=== PATIENT | male | born 1970 | race African-American/Black ===

== ENCOUNTER 2020-03-08 10:48 | Inpatient (IN) | payer MEDICAID ==
[~2020-03-08] VITALS: Ht 172.7 cm; Wt 86.2 kg
[2020-03-08] MEDS ORDERED: AMLO5TAB88 PO (10:52)
[2020-03-08] MEDS ORDERED: SODIUM CHLORIDE 0.9% 1,000 ML IV ONE ×2 (11:05→15:15)
[2020-03-08] MEDS ORDERED: MAGNESIUM/ALUMINUM HYDROXIDE/SIMETHICONE 30ML UDC PO STA (11:05)
[2020-03-08 12:00] LABS: EOSINOPHILS % 1.9 % (0.0-5.0); HEMATOCRIT. 41.8 % (42.0-52.0); HEMOGLOBIN. 13.9 g/dL (14.0-18.0); LYMPHOCYTES % 20.2 % (20.0-50.0); MEAN CORPUSCULAR HEMOGLOBIN 28.5 pg (28.0-32.0); MEAN CORPUSCULAR VOLUME 85.4 fL (80.0-94.0); MEAN PLATELET VOLUME 7.8 fl (7.4-10.4); NEUTROPHILS % 68.9 % (40.0-76.0); PLATELET 367 x1000/uL (130-400); RED BLOOD CELL COUNT 4.89 mill/uL (4.7-6.1); RED CELL DISTRIBUTION WIDTH 15.2 % (11.6-14.6)
[2020-03-08 12:01] LABS: CLARITY URINE CLEAR (CLEAR); COLOR URINE YELLOW (YELLOW); KETONES URINE NEGATIVE (NEGATIVE); LEUKOCYTE ESTERASE URINE NEGATIVE (NEGATIVE); NITRITE URINE NEGATIVE (NEGATIVE); OCCULT BLOOD URINE TRACE (NEGATIVE); PH URINE 5.5 (4.5-8.0); PROTEIN URINE TRACE (NEGATIVE); SPECIFIC GRAVITY URINE 1.009 (1.005-1.030); UROBILINOGEN URINE 0.2 E.U./dL (0.2-1.0)
[2020-03-08 12:06] LABS: CHLORIDE 92 mEq/L (98-107)
[2020-03-08 12:18] LABS: ETHANOL BLOOD 233 mg/dL
[2020-03-08 12:25] LABS: *AMPHETAMINES SCREEN URINE NEGATIVE (NEGATIVE); *BARBITURATES SCREEN URINE NEGATIVE (NEGATIVE); *BENZODIAZEPINES SCREEN URINE NEGATIVE (NEGATIVE); *COCAINE SCREEN URINE NEGATIVE (NEGATIVE); CANNABINOID URINE SCREEN PRESUMTIVE POSITIVE (NEGATIVE); METHADONE URINE SCREEN NEGATIVE (NEGATIVE)
[2020-03-08 12:26] LABS: OPIATES URINE SCREEN NEGATIVE (NEGATIVE); PHENCYCLIDINE URINE SCREEN NEGATIVE (NEGATIVE)
[2020-03-08] MEDS ORDERED: MORPHINE SULFATE 4 MG/ML CPJ (NOT FOR IM USE) IV NR (15:00)
[2020-03-08] MEDS ORDERED: LORAZEPAM 2MG/ML CPJ IV NR (15:15)
[2020-03-08] MEDS ORDERED: ONDANSETRON HCL 4MG/2ML INJ IV NR (16:30)
[2020-03-08] MEDS ORDERED: DIPHENHYDRAMINE 50MG/ML VIAL IV PRN (16:30)
[2020-03-08] MEDS ORDERED: FOLIC ACID 1 MG, THIAMINE HCL 100 MG, MVI, ADULT NO.1 10 ML in DEXTROSE 5% WATER 1,000 ML IV ONE ×4 (16:45)
[2020-03-08] MEDS: SODIUM CHLORIDE 0.9% 1,000 ML IV SCH (20:23)
[2020-03-08] MEDS: ONDANSETRON HCL 4MG/2ML INJ IV PRN (21:28)
[2020-03-08] MEDS: CLONIDINE 0.1MG TABLET PO PRN (21:28)
[2020-03-09 05:16] LABS: BASOPHILS % 0.7 % (0.0-2.0); EOSINOPHILS % 3.6 % (0.0-5.0); HEMATOCRIT. 37.9 % (42.0-52.0); HEMOGLOBIN. 12.5 g/dL (14.0-18.0); LYMPHOCYTES % 14.4 % (20.0-50.0); MEAN CORPUSCULAR HEMOGLOBIN 28.6 pg (28.0-32.0); MEAN CORPUSCULAR VOLUME 86.4 fL (80.0-94.0); MEAN PLATELET VOLUME 8.4 fl (7.4-10.4); MONOCYTES % 13.9 % (2.0-8.0); NEUTROPHILS % 67.4 % (40.0-76.0); PLATELET 323 x1000/uL (130-400); RED BLOOD CELL COUNT 4.39 mill/uL (4.7-6.1); RED CELL DISTRIBUTION WIDTH 15.3 % (11.6-14.6)
[2020-03-09 05:24] LABS: CHLORIDE 101 mEq/L (98-107)
[2020-03-09 05:31] LABS: LDL CHOLESTEROL 54 mg/dL (5-100)
[2020-03-09 05:33] LABS: HDL CHOLESTEROL 102 mg/dL (40-59)
[2020-03-09] MEDS: MORPHINE SULFATE 2 MG/ML CPJ (NOT FOR IM USE) IV PRN ×3 (08:18→19:51)
[2020-03-09] MEDS: ONDANSETRON HCL 4MG/2ML INJ IV PRN ×2 (08:19→13:38)
[2020-03-09] MEDS ORDERED: FOLIC ACID 1 MG, THIAMINE HCL 100 MG, MVI, ADULT NO.1 10 ML in DEXTROSE 5% WATER 1,000 ML IV ONE ×4 (09:45)
[2020-03-09] MEDS ORDERED: DIAZEPAM 5 MG TABLET PO PRN (09:45)
[2020-03-09] MEDS: BUPROPION HCL 150MG TABLET XL 24HR PO SCH (11:55)
[2020-03-09] MEDS ORDERED: BUSPIRONE HCL 5MG TABLET PO SCH (14:00)
[2020-03-09] MEDS: CLONIDINE 0.1MG TABLET PO PRN (16:04)
[2020-03-09] MEDS ORDERED: DIATR MEGLU/DIATRIZOATE SOLN 30ML PO SCH (16:30)
[2020-03-09] MEDS ORDERED: DIATR MEGLU/DIATRIZOATE SOLN 30ML ONE (16:56)
[2020-03-09] MEDS ORDERED: TRAZODONE HCL 50MG TABLET PO SCH (21:00)
[2020-03-09] MEDS ORDERED: IOHEXOL-300 100 ML BOTTLE ONE (23:21)
[2020-03-10] MEDS: MORPHINE SULFATE 2 MG/ML CPJ (NOT FOR IM USE) IV PRN ×2 (04:48→19:09)
[2020-03-10] MEDS ORDERED: hydrochlorothiazide PO (13:52)
[2020-03-10] MEDS ORDERED: wellbutrin PO (13:54)
[2020-03-10] MEDS ORDERED: prilosec PO (13:56)
[2020-03-10] MEDS ORDERED: prozac PO (14:00)
[2020-03-10 14:02] VITALS: BP 163/116
[2020-03-10] MEDS: BUPROPION HCL 150MG TABLET XL 24HR PO SCH (14:11)
[2020-03-10] MEDS: AMLODIPINE 5MG TABLET PO SCH (14:11)
[2020-03-10] MEDS: BUSPIRONE HCL 10MG TABLET PO SCH ×2 (14:11→21:19)
[2020-03-10] MEDS ORDERED: DIAZEPAM 5 MG TABLET PO PRN (15:15)
[2020-03-10 15:30] VITALS: BP 163/116
[2020-03-10 16:00] VITALS: BP 147/116
[2020-03-10 20:00] VITALS: BP 167/118
[2020-03-10] MEDS: TRAZODONE HCL 50MG TABLET PO SCH (21:19)
[2020-03-11] VITALS: BP 155/106
[2020-03-11] MEDS: CLONIDINE 0.1MG TABLET PO PRN ×4 (00:05→22:30)
[2020-03-11] MEDS: MORPHINE SULFATE 2 MG/ML CPJ (NOT FOR IM USE) IV PRN ×3 (00:24→20:12)
[2020-03-11 04:00] VITALS: BP 142/104
[2020-03-11 06:41] LABS: CHLORIDE 101 mEq/L (98-107)
[2020-03-11 06:46] LABS: BASOPHILS % 0.7 % (0.0-2.0); EOSINOPHILS % 4.9 % (0.0-5.0); HEMATOCRIT. 38.5 % (42.0-52.0); HEMOGLOBIN. 12.8 g/dL (14.0-18.0); LYMPHOCYTES % 15.6 % (20.0-50.0); MEAN CORPUSCULAR HEMOGLOBIN 28.5 pg (28.0-32.0); MEAN CORPUSCULAR VOLUME 85.9 fL (80.0-94.0); MEAN PLATELET VOLUME 8.3 fl (7.4-10.4); MONOCYTES % 11.3 % (2.0-8.0); NEUTROPHILS % 67.5 % (40.0-76.0); PLATELET 284 x1000/uL (130-400); RED BLOOD CELL COUNT 4.48 mill/uL (4.7-6.1); RED CELL DISTRIBUTION WIDTH 15.3 % (11.6-14.6)
[2020-03-11] MEDS: BUSPIRONE HCL 10MG TABLET PO SCH ×3 (07:51→21:57)
[2020-03-11 08:26] VITALS: BP 150/97
[2020-03-11] MEDS: BUPROPION HCL 150MG TABLET XL 24HR PO SCH (08:29)
[2020-03-11] MEDS: AMLODIPINE 5MG TABLET PO SCH (08:29)
[2020-03-11] MEDS: ONDANSETRON HCL 4MG/2ML INJ IV PRN (08:29)
[2020-03-11] MEDS: PANTOPRAZOLE SODIUM 40 MG/VIAL IV SCH ×2 (09:39→16:14)
[2020-03-11 11:40] VITALS: BP 149/111
[2020-03-11] MEDS: SODIUM CHLORIDE 0.9% 1,000 ML IV SCH ×2 (12:56→19:30)
[2020-03-11 16:22] VITALS: BP 164/109
[2020-03-11 20:00] VITALS: BP 151/105
[2020-03-11] MEDS: TRAZODONE HCL 50MG TABLET PO SCH (21:56)
[2020-03-12] VITALS: BP 166/109
[2020-03-12] MEDS: MORPHINE SULFATE 2 MG/ML CPJ (NOT FOR IM USE) IV PRN ×3 (03:46→22:00)
[2020-03-12 04:00] VITALS: BP 155/110
[2020-03-12] MEDS: CLONIDINE 0.1MG TABLET PO PRN ×2 (04:30→12:26)
[2020-03-12] MEDS: BUSPIRONE HCL 10MG TABLET PO SCH ×3 (06:27→21:59)
[2020-03-12 06:37] LABS: CHLORIDE 103 mEq/L (98-107)
[2020-03-12 06:57] LABS: BASOPHILS % 0.6 % (0.0-2.0); EOSINOPHILS % 4.9 % (0.0-5.0); HEMATOCRIT. 37.2 % (42.0-52.0); HEMOGLOBIN. 12.1 g/dL (14.0-18.0); LYMPHOCYTES % 15.6 % (20.0-50.0); MEAN CORPUSCULAR HEMOGLOBIN 28.4 pg (28.0-32.0); MEAN PLATELET VOLUME 8.3 fl (7.4-10.4); MONOCYTES % 14.4 % (2.0-8.0); NEUTROPHILS % 64.5 % (40.0-76.0); PLATELET 275 x1000/uL (130-400); RED BLOOD CELL COUNT 4.28 mill/uL (4.7-6.1); RED CELL DISTRIBUTION WIDTH 15.2 % (11.6-14.6)
[2020-03-12 07:42] VITALS: BP 151/107
[2020-03-12] MEDS: SODIUM CHLORIDE 0.9% 1,000 ML IV SCH ×2 (08:09→21:59)
[2020-03-12] MEDS: PANTOPRAZOLE SODIUM 40 MG/VIAL IV SCH ×2 (08:09→21:59)
[2020-03-12] MEDS: AMLODIPINE 5MG TABLET PO SCH (08:10)
[2020-03-12] MEDS: BUPROPION HCL 150MG TABLET XL 24HR PO SCH (08:10)
[2020-03-12 12:24] VITALS: BP 148/107
[2020-03-12 16:00] VITALS: BP 151/107
[2020-03-12] MEDS ORDERED: CLONIDINE 0.1MG TABLET PO NR (17:00)
[2020-03-12 20:27] VITALS: BP 149/108
[2020-03-12] MEDS ORDERED: AMLODIPINE 5MG TABLET PO SCH (21:00)
[2020-03-12] MEDS: TRAZODONE HCL 50MG TABLET PO SCH (22:00)
[2020-03-13] VITALS (7 sets, daily range): BP systolic 146–172; BP diastolic 86–115
[2020-03-13] MEDS: CLONIDINE 0.1MG TABLET PO PRN ×2 (05:27→12:12)
[2020-03-13] MEDS: MORPHINE SULFATE 2 MG/ML CPJ (NOT FOR IM USE) IV PRN ×2 (05:28→13:40)
[2020-03-13] MEDS: BUSPIRONE HCL 10MG TABLET PO SCH ×3 (05:28→20:01)
[2020-03-13 07:18] LABS: HEMATOCRIT. 39.7 % (42.0-52.0); HEMOGLOBIN. 12.9 g/dL (14.0-18.0); MEAN CORPUSCULAR HEMOGLOBIN 28.3 pg (28.0-32.0); MEAN CORPUSCULAR VOLUME 86.9 fL (80.0-94.0); MEAN PLATELET VOLUME 8.5 fl (7.4-10.4); PLATELET 298 x1000/uL (130-400); RED BLOOD CELL COUNT 4.57 mill/uL (4.7-6.1); RED CELL DISTRIBUTION WIDTH 15.3 % (11.6-14.6)
[2020-03-13 07:33] LABS: CHLORIDE 105 mEq/L (98-107)
[2020-03-13] MEDS ORDERED: LOSARTAN POTASSIUM 25 MG TABLET PO SCH (09:00)
[2020-03-13] MEDS ORDERED: AMLODIPINE 10MG TABLET PO SCH (09:00)
[2020-03-13] MEDS: PANTOPRAZOLE SODIUM 40 MG/VIAL IV SCH (09:19)
[2020-03-13] MEDS: BUPROPION HCL 150MG TABLET XL 24HR PO SCH (09:20)
[2020-03-13] MEDS: SODIUM CHLORIDE 0.9% 1,000 ML IV SCH (09:24)
[2020-03-13 11:15] LABS: PLATELET ESTIMATE NORMAL
[2020-03-13] MEDS: ONDANSETRON HCL 4MG/2ML INJ IV PRN (13:39)
[2020-03-13] MEDS ORDERED: BUSP10TA4 PO (14:45)
[2020-03-13] MEDS ORDERED: BUPR150T9 PO (14:45)
[2020-03-13] MEDS ORDERED: PANT40TA4 MT (14:45)
[2020-03-13] MEDS ORDERED: TRAZ-251 PO (14:45)
[2020-03-13] MEDS ORDERED: METO-385 MT (14:45)
[2020-03-13] MEDS ORDERED: AMLO10TA80 PO (14:45)
[2020-03-13] MEDS ORDERED: LOSA25TA3 PO (14:45)
[2020-03-13] MEDS: METOPROLOL TARTRATE 25MG TABLET PO SCH ×3 (15:00→20:02)
[2020-03-13] MEDS: TRAZODONE HCL 50MG TABLET PO SCH (20:01)
[2020-03-13] MEDS ORDERED: FAMOTIDINE 20MG/2ML VIAL IV SCH (21:00)
== END 2020-03-13 20:56 | disposition home or self-care (01) | DRG 282 ==
LOC: ER 10:57 → MICUSO 15:09 → 5EST 03-09 10:19 → MICUSO 03-09 10:45 → 5WST 03-10 10:34
PROVIDERS: ADMIT Internal Medicine; ATTEND Internal Medicine
DX: K85.20 Alcohol induced acute pancreatitis without necrosis or infection (principal); F20.9 Schizophrenia, unspecified; F31.9 Bipolar disorder, unspecified; K70.0 Alcoholic fatty liver; R45.851 Suicidal ideations; Y90.7 Blood alcohol level of 200-239 mg/100 ml; F10.129 Alcohol abuse with intoxication, unspecified; E87.1 Hypo-osmolality and hyponatremia; D64.9 Anemia, unspecified; E86.0 Dehydration; E87.8 Other disorders of electrolyte and fluid balance, not elsewhere classified; I10 Essential (primary) hypertension; K29.70 Gastritis, unspecified, without bleeding; K57.90 Diverticulosis of intestine, part unspecified, without perforation or abscess without bleeding; Z20.828 Contact with and (suspected) exposure to other viral communicable diseases; E66.9 Obesity, unspecified; F41.9 Anxiety disorder, unspecified; Z90.49 Acquired absence of other specified parts of digestive tract; Z98.84 Bariatric surgery status; Z79.899 Other long term (current) drug therapy; Z68.28 Body mass index [BMI] 28.0-28.9, adult; R74.0 Nonspecific elevation of levels of transaminase and lactic acid dehydrogenase [LDH]; R19.7 Diarrhea, unspecified
CPT/HCPCS: 36415; 71045; 74177; 76705; 80048; 80053; 80061; 80076; 80305; 80307; 80320; 80329; 81003; 82105; 82378; 84443; 85025; 86301; 87635; 93005; 96374; 99285; C9113; J1200; J2060; J2270; J2405; J3411; J3490; J7030; J7070; Q9963; Q9967; G0480

== ENCOUNTER 2020-12-21 16:17 | Emergency (ER) | payer OTHER ==
[~2020-12-21] VITALS: Ht 182.9 cm; Wt 100.0 kg
[~2020-12-21 16:17] MED LIST: AMLO10TA80 PO; BUPR150T9 PO; BUSP10TA4 PO; LOSA25TA3 PO; METO-385 MT; PANT40TA51 MT; TRAZ-251 PO
[2020-12-21] MEDS ORDERED: FAMOTIDINE 20MG/2ML VIAL IV STA (16:30)
[2020-12-21] MEDS ORDERED: SODIUM CHLORIDE 0.9% 1,000 ML IV ONE (16:30)
[2020-12-21] MEDS ORDERED: MORPHINE SULFATE 4 MG/ML CPJ (NOT FOR IM USE) IV STA (16:30)
[2020-12-21] MEDS ORDERED: ONDANSETRON HCL 4MG/2ML INJ IV STA (16:30)
[2020-12-21 17:21] LABS: BASOPHILS % 0.8 % (0.0-2.0); EOSINOPHILS % 10.2 % (0.0-5.0); HEMOGLOBIN. 12.1 g/dL (14.0-18.0); MEAN CORPUSCULAR HEMOGLOBIN 29.1 pg (28.0-32.0); MEAN CORPUSCULAR VOLUME 86.7 fL (80.0-94.0); MEAN PLATELET VOLUME 7.8 fl (7.4-10.4); MONOCYTES % 12.3 % (2.0-8.0); NEUTROPHILS % 49.7 % (40.0-76.0); PLATELET 321 x1000/uL (130-400); RED BLOOD CELL COUNT 4.15 mill/uL (4.7-6.1); RED CELL DISTRIBUTION WIDTH 14.4 % (11.6-14.6)
[2020-12-21 17:23] LABS: CLARITY URINE CLEAR (CLEAR); COLOR URINE YELLOW (YELLOW); KETONES URINE NEGATIVE (NEGATIVE); LEUKOCYTE ESTERASE URINE NEGATIVE (NEGATIVE); NITRITE URINE NEGATIVE (NEGATIVE); OCCULT BLOOD URINE NEGATIVE (NEGATIVE); PH URINE 5.5 (4.5-8.0); PROTEIN URINE NEGATIVE (NEGATIVE); SPECIFIC GRAVITY URINE 1.006 (1.005-1.030); UROBILINOGEN URINE 0.2 E.U./dL (0.2-1.0)
[2020-12-21 17:24] LABS: CHLORIDE 106 mEq/L (98-107)
[2020-12-21 17:30] LABS: ETHANOL BLOOD 14 mg/dL
[2020-12-21] MEDS ORDERED: KETOROLAC 30MG/ML VIAL IV STA (17:54)
[2020-12-21] MEDS ORDERED: VISCOUS LIDOCAINE 2% 15 ML UDC PO STA (17:54)
[2020-12-21] MEDS ORDERED: MAGNESIUM/ALUMINUM HYDROXIDE/SIMETHICONE 30ML UDC PO STA (17:54)
[2020-12-21] MEDS ORDERED: ONDANSETRON HCL 4MG/2ML INJ IV ONE (19:00)
[2020-12-21] MEDS ORDERED: MORPHINE SULFATE 4 MG/ML CPJ (NOT FOR IM USE) IV ONE (19:30)
[2020-12-21] MEDS ORDERED: ONDA4TAB5 MT (19:45)
[2020-12-21] MEDS ORDERED: FAMO40TA70 MT (19:45)
[2020-12-21 20:04] VITALS: BP 149/88
== END 2020-12-21 20:15 | disposition home or self-care (01) ==
LOC: ER 16:17
DX: K29.00 Acute gastritis without bleeding (principal); N28.9 Disorder of kidney and ureter, unspecified; I10 Essential (primary) hypertension; F31.9 Bipolar disorder, unspecified; F20.9 Schizophrenia, unspecified; F12.10 Cannabis abuse, uncomplicated; F10.10 Alcohol abuse, uncomplicated; Y90.0 Blood alcohol level of less than 20 mg/100 ml; Z98.84 Bariatric surgery status
CPT/HCPCS: 36415; 80053; 80320; 81003; 83690; 85025; 96361; 96374; 96375; 96376; 99285; J1885; J2270; J2405; J3490; J7030; Z7610; G0480

== ENCOUNTER 2021-01-12 14:56 | Emergency (ER) | payer MEDICAID, OTHER ==
[~2021-01-12] VITALS: Ht 175.3 cm; Wt 91.0 kg
[~2021-01-12 14:56] MED LIST changes: +FAMO40TA70 MT; +ONDA4TAB5 MT
[2021-01-12] MEDS ORDERED: KETOROLAC 30MG/ML VIAL IM ONE (16:30)
[2021-01-12] MEDS ORDERED: NAPR-1176 MT (16:38)
[2021-01-12 16:49] VITALS: BP 140/98
== END 2021-01-12 17:15 | disposition home or self-care (01) ==
LOC: ER 14:56
DX: M25.562 Pain in left knee (principal); M25.561 Pain in right knee; F12.10 Cannabis abuse, uncomplicated; I10 Essential (primary) hypertension; Z79.899 Other long term (current) drug therapy; Z86.59 Personal history of other mental and behavioral disorders
CPT/HCPCS: 96372; 99283; J1885; L1830; Z7610

== ENCOUNTER 2021-05-18 15:52 | Emergency (ER) | payer MEDICAID, OTHER ==
[~2021-05-18] VITALS: Ht 177.8 cm; Wt 115.0 kg
[~2021-05-18 15:52] MED LIST changes: +NAPR-1176 MT
[2021-05-18] MEDS ORDERED: ACETAMINOPHEN 325MG TABLET PO STA (18:00)
[2021-05-18 18:19] LABS: BASOPHILS % 0.9 % (0.0-2.0); EOSINOPHILS % 8.3 % (0.0-5.0); HEMATOCRIT. 34.3 % (42.0-52.0); HEMOGLOBIN. 11.2 g/dL (14.0-18.0); LYMPHOCYTES % 23.6 % (20.0-50.0); MEAN CORPUSCULAR HEMOGLOBIN 26.9 pg (28.0-32.0); MEAN CORPUSCULAR VOLUME 82.4 fL (80.0-94.0); MONOCYTES % 12.6 % (2.0-8.0); NEUTROPHILS % 54.6 % (40.0-76.0); PLATELET 327 x1000/uL (130-400); RED BLOOD CELL COUNT 4.17 mill/uL (4.7-6.1); RED CELL DISTRIBUTION WIDTH 15.9 % (11.6-14.6)
[2021-05-18 18:26] LABS: CHLORIDE 106 mEq/L (98-107)
[2021-05-18] MEDS ORDERED: SODIUM CHLORIDE 0.9% 500 ML IV ONE (19:00)
[2021-05-18 21:00] VITALS: BP 145/76
== END 2021-05-18 21:11 | disposition home or self-care (01) ==
LOC: ER 15:52
DX: R55 Syncope and collapse (principal); F12.10 Cannabis abuse, uncomplicated; I10 Essential (primary) hypertension; Z86.59 Personal history of other mental and behavioral disorders; Z79.899 Other long term (current) drug therapy
CPT/HCPCS: 36415; 70450; 71045; 80053; 83880; 84484; 85025; 93005; 96360; 99285; J7040; Z7610

== ENCOUNTER 2023-08-01 08:40 | Emergency (ER) | payer MEDICAID ==
[~2023-08-01] VITALS: Ht 172.7 cm; Wt 91.0 kg
[~2023-08-01 08:40] MED LIST changes: +BUPR-114 PO; -BUPR150T9 PO; +LOSA-412 PO; -LOSA25TA3 PO
[2023-08-01 08:57] VITALS: BP 124/87; PULSE 94; RESP 16; TEMP 98.6; O2SAT 98
[2023-08-01] MEDS ORDERED: HYDR-4001 MT (09:30)
[2023-08-01] MEDS: SILVER SULFADIAZINE 1% CREAM 25GM TOP ONE (09:30)
[2023-08-01] MEDS: TETANUS AND DIPHTHERIA TOX/PF 0.5ML SYR (ADULT) IM ONE (09:30)
[2023-08-01] MEDS ORDERED: IBUP-2028 MT (09:30)
[2023-08-01] MEDS ORDERED: SILV20CR13 TP (09:30)
[2023-08-04] MEDS ORDERED: HYDR-4001 MT (10:17)
== END 2023-08-01 11:18 | disposition home or self-care (01) ==
LOC: ER 08:52
DX: T23.201A Burn of second degree of right hand, unspecified site, initial encounter (principal); T79.9XXA Unspecified early complication of trauma, initial encounter; I10 Essential (primary) hypertension; F12.10 Cannabis abuse, uncomplicated; Z79.899 Other long term (current) drug therapy; Z86.59 Personal history of other mental and behavioral disorders; X10.0XXA Contact with hot drinks, initial encounter; Y93.89 Activity, other specified; Y92.89 Other specified places as the place of occurrence of the external cause; Y99.8 Other external cause status
CPT/HCPCS: 90714; 16000; 90471; 99283; Z7610

== ENCOUNTER 2024-02-23 22:05 | Emergency (ER) | payer MEDICARE, OTHER ==
[~2024-02-23] VITALS: Ht 180.3 cm; Wt 83.0 kg
[~2024-02-23 22:05] MED LIST changes: +HYDR-4001 MT; +IBUP-2028 MT; +SILV20CR13 TP
[2024-02-23 22:07] VITALS: O2SAT 100
[2024-02-23] MEDS: SODIUM CHLORIDE 0.9% 1000ML BAG (SEPSIS BOLUS) IV ONE (23:00)
[2024-02-23 23:15] LABS: BASOPHILS % 0.4 % (0.0-2.0); EOSINOPHILS % 3.9 % (0.0-5.0); HEMATOCRIT. 33.3 % (42.0-52.0); LYMPHOCYTES % 17.4 % (20.0-50.0); MEAN CORPUSCULAR HEMOGLOBIN 30.3 pg (28.0-32.0); MEAN CORPUSCULAR VOLUME 91.7 fL (80.0-94.0); MEAN PLATELET VOLUME 7.4 fl (7.4-10.4); MONOCYTES % 14.2 % (2.0-8.0); NEUTROPHILS % 64.1 % (40.0-76.0); PLATELET 244 x1000/uL (130-400); RED BLOOD CELL COUNT 3.63 mill/uL (4.7-6.1); RED CELL DISTRIBUTION WIDTH 15.7 % (11.6-14.6); WHITE BLOOD COUNT 7.3 x1000/uL (4.5-11.0)
[2024-02-23 23:17] LABS: CHLORIDE 108 mEq/L (98-107); POTASSIUM 3.3 mEq/L (3.5-5.1); SODIUM 137 mEq/L (136-145)
[2024-02-23 23:18] LABS: CALCIUM 8.1 mg/dL (8.7-10.4); CARBON DIOXIDE 23 mEq/L (21-32)
[2024-02-23 23:23] LABS: CREATININE 1.7 mg/dL (0.6-1.3); GLUCOSE 69 mg/dL (70-105); UREA NITROGEN BLOOD 17 mg/dL (9-23)
[2024-02-23 23:24] LABS: TROPONIN I HIGH SENSITIVITY 8 ng/L (3.0-53)
[2024-02-23 23:25] LABS: ALANINE AMINOTRANSFERASE 22 IU/L (10-49); ALBUMIN 3.7 g/dL (3.2-4.8); ASPARTATE AMINOTRANSFERASE 30 IU/L (<34); LACTIC ACID 3.2 mmol/L (0.4-2.0)
[2024-02-23 23:26] LABS: BILIRUBIN TOTAL < 0.2 mg/dL (0.1-1.0); PROTEIN TOTAL 5.9 g/dL (6.0-8.3)
[2024-02-23 23:36] LABS: D-DIMER 2.14 mg/L FEU (<0.50); INR 0.9; PARTIAL THROMBOPLASTIN TIME 22.7 sec (23.4-31.0); PROTHROMBIN TIME 10.5 sec (9.6-11.0)
[2024-02-24] MEDS: CEFTRIAXONE 1GM/50ML 50 ML IV ONE (00:23)
[2024-02-24] MEDS: POTASSIUM CHLORIDE 20MEQ/PACKET PO ONE (00:23)
[2024-02-24] MEDS: AZITHROMYCIN 500MG/250ML 250 ML IV STA (00:44)
[2024-02-24 01:16] LABS: CLARITY URINE CLEAR (CLEAR); COLOR URINE YELLOW (YELLOW); GLUCOSE URINE NEGATIVE (NEGATIVE); KETONES URINE TRACE (NEGATIVE); LEUKOCYTE ESTERASE URINE NEGATIVE (NEGATIVE); NITRITE URINE NEGATIVE (NEGATIVE); OCCULT BLOOD URINE NEGATIVE (NEGATIVE); PH URINE 5.5 (4.5-8.0); PROTEIN URINE NEGATIVE (NEGATIVE); SPECIFIC GRAVITY URINE 1.015 (1.005-1.030); UROBILINOGEN URINE 0.2 E.U./dL (0.2-1.0)
[2024-02-24] MEDS: ASPIRIN 325MG EC TABLET PO ONE (02:37)
[2024-02-24] MEDS ORDERED: DOCUSATE SODIUM 100MG CAPSULE PO PRN (04:00)
[2024-02-24] MEDS ORDERED: CLONIDINE 0.1MG TABLET PO PRN (04:00)
[2024-02-24] MEDS ORDERED: IPRATROPIUM/ALBUTEROL 0.5-3(2.5)MG/3ML NEB HHN PRN (04:00)
[2024-02-24] MEDS ORDERED: MAGNESIUM/ALUMINUM HYDROXIDE/SIMETHICONE 30ML UDC PO PRN (04:00)
[2024-02-24] MEDS ORDERED: ACETAMINOPHEN 325MG TABLET PO PRN ×2 (04:00)
[2024-02-24] MEDS ORDERED: GUAIFENESIN 200MG/10ML SUGAR FREE UDC PO PRN (04:00)
[2024-02-24] MEDS ORDERED: ONDANSETRON HCL 4MG/2ML INJ IV PRN (04:00)
[2024-02-24] MEDS: IOHEXOL-350 100 ML BOTTLE ONE (04:11)
[2024-02-24 04:37] LABS: AMYLASE 93 IU/L (30-118)
[2024-02-24] MEDS: SODIUM CHLORIDE 0.9% 1,000 ML IV SCH (05:27)
[2024-02-24 09:05] LABS: *AMPHETAMINES SCREEN URINE NEGATIVE (NEGATIVE); *BARBITURATES SCREEN URINE NEGATIVE (NEGATIVE); *BENZODIAZEPINES SCREEN URINE NEGATIVE (NEGATIVE); *COCAINE SCREEN URINE NEGATIVE (NEGATIVE); CANNABINOID URINE SCREEN PRESUMPTIVE POSITIVE (NEGATIVE); ECSTASY MDMA SCREEN URINE NEGATIVE (NEGATIVE); METHADONE URINE SCREEN NEGATIVE (NEGATIVE); OPIATES URINE SCREEN NEGATIVE (NEGATIVE); PHENCYCLIDINE URINE SCREEN NEGATIVE (NEGATIVE)
[2024-02-24 12:59] VITALS: BP 122/84; PULSE 80; RESP 6; TEMP 98.6
[2024-02-24] MEDS ORDERED: IOHEXOL-350 100 ML BOTTLE ONE (16:22)
== END 2024-02-24 13:00 | disposition left against medical advice (07) ==
LOC: ER 22:05 → EDBEDREQ 02-24 02:27 → EDBEDREQTM 02-24 02:27 → ER 02-24 13:00 → CANBEDREQ 02-24 14:08
DX: A41.9 Sepsis, unspecified organism (principal); R65.20 Severe sepsis without septic shock; R07.9 Chest pain, unspecified; R10.9 Unspecified abdominal pain; F31.9 Bipolar disorder, unspecified; I10 Essential (primary) hypertension; F20.9 Schizophrenia, unspecified; F12.90 Cannabis use, unspecified, uncomplicated; Z98.890 Other specified postprocedural states; Z79.899 Other long term (current) drug therapy
CPT/HCPCS: 99285; 74176; 71045; 96361 ×2; 80053; 83880; 83605 ×2; 83690; 85025; 85379; 85610; 85730; 86850; 86900; 86901; 87040; 84484; 36415 ×2; 84145; 93005; 93970; 96365; 71275; 93923; 96366; 96375; 80305; 82150; 82962; 87086; 81003; J7030; Q9967; J0456; J0696

== ENCOUNTER 2024-09-08 20:57 | Emergency (ER) | payer MEDICAID, MEDICARE, OTHER ==
[~2024-09-08] VITALS: Ht 172.7 cm; Wt 100.0 kg
[2024-09-08 20:58] VITALS: O2SAT 100
[2024-09-08 21:05] VITALS: BP 149/90; PULSE 97; RESP 16; TEMP 36.9; O2SAT 99
[2024-09-08] MEDS ORDERED: TETANUS, DIPHTHERIA, PERTUSSIS VAC/PF 0.5ML (>10YR OLD) IM ONE (23:15)
[2024-09-08] MEDS ORDERED: LIDOCAINE HCL/PF 1% 10 MG/ML 5ML VIAL INFIL ONE (23:15)
[2024-09-08] MEDS ORDERED: BACITRACIN ZINC OINT UDPKT TOP ONE (23:15)
[2024-09-09] MEDS ORDERED: NAPR-1176 MT (02:22)
[2024-09-09] MEDS ORDERED: TETANUS, DIPHTHERIA, PERTUSSIS VAC/PF 0.5ML (>10YR OLD) IM ONE (02:30)
[2024-09-09] MEDS ORDERED: BACITRACIN ZINC OINT UDPKT TOP NR (02:30)
[2024-09-09] MEDS ORDERED: KETOROLAC 15MG/ML VIAL IM ONE (02:30)
[2024-09-09] MEDS ORDERED: LIDOCAINE HCL/PF 1% 10 MG/ML 5ML VIAL INFIL NR (02:30)
== END 2024-09-09 03:52 | disposition home or self-care (01) ==
LOC: ER 21:16
DX: S63.124A Dislocation of interphalangeal joint of right thumb, initial encounter (principal); S61.011A Laceration without foreign body of right thumb without damage to nail, initial encounter; F20.9 Schizophrenia, unspecified; F31.9 Bipolar disorder, unspecified; F41.9 Anxiety disorder, unspecified; I10 Essential (primary) hypertension; Z79.1 Long term (current) use of non-steroidal anti-inflammatories (NSAID); Z79.899 Other long term (current) drug therapy; Z98.84 Bariatric surgery status; W06.XXXA Fall from bed, initial encounter; Y93.89 Activity, other specified; Y92.89 Other specified places as the place of occurrence of the external cause; Y99.8 Other external cause status
CPT/HCPCS: 12002; 26770; 73130; 90715; 99284

== ENCOUNTER 2024-09-17 07:42 | Inpatient (IN) | payer MEDICARE, MEDICAID ==
[~2024-09-17] VITALS: Ht 172.7 cm; Wt 102.5 kg
[2024-09-17] MEDS: LIDOCAINE HCL 1% 20ML VIAL INFIL ONE (09:02)
[2024-09-17 09:50] LABS: BASOPHILS % 0.5 % (0.0-2.0); DIFFERENTIAL COMMENT 0; EOSINOPHILS % 6.4 % (0.0-5.0); HEMATOCRIT. 36.1 % (42.0-52.0); HEMOGLOBIN. 11.8 g/dL (14.0-18.0); LYMPHOCYTES % 14.9 % (20.0-50.0); MEAN CORPUSCULAR HEMOGLOBIN 27.1 pg (28.0-32.0); MEAN CORPUSCULAR HGB CONC 32.7 g/dL (31.0-37.0); MEAN PLATELET VOLUME 7.6 fl (7.4-10.4); MONOCYTES % 11.1 % (2.0-8.0); NEUTROPHILS % 67.1 % (40.0-76.0); PLATELET 439 x1000/uL (130-400); RED BLOOD CELL COUNT 4.35 mill/uL (4.7-6.1); RED CELL DISTRIBUTION WIDTH 17.7 % (11.6-14.6); WHITE BLOOD COUNT 8.7 x1000/uL (4.5-11.0)
[2024-09-17 09:51] LABS: CARBON DIOXIDE 27 mEq/L (21-32); CHLORIDE 98 mEq/L (98-107); POTASSIUM 5.8 mEq/L (3.5-5.1); SODIUM 132 mEq/L (136-145)
[2024-09-17 09:52] LABS: CALCIUM 8.5 mg/dL (8.7-10.4)
[2024-09-17] MEDS: KETOROLAC 15MG/ML VIAL IV ONE (09:53)
[2024-09-17] MEDS: VANCOMYCIN 1G PREMIX 200 ML IV SCH (09:54)
[2024-09-17] MEDS: MORPHINE SULFATE 4 MG/ML INJ (FOR IV/IM USE) IV ONE (09:54)
[2024-09-17 09:57] LABS: CREATININE 1.2 mg/dL (0.6-1.3); GLUCOSE 105 mg/dL (70-105); UREA NITROGEN BLOOD 7 mg/dL (9-23)
[2024-09-17] MEDS ORDERED: ONDANSETRON HCL 4MG/2ML INJ IV PRN (13:15)
[2024-09-17] MEDS ORDERED: TAMS-11 PO (13:15)
[2024-09-17] MEDS ORDERED: GABA-290 (13:15)
[2024-09-17] MEDS ORDERED: INSULIN REGULAR (HUMULIN R) 1000UNITS/10ML VIAL IV NR (13:30)
[2024-09-17] MEDS: ALBUTEROL (0.083%) 2.5MG/3ML NEB HHN NR (13:56)
[2024-09-17] MEDS ORDERED: CLINDAMYCIN 600MG PREMIX 50 ML IV SCH (14:00)
[2024-09-17 14:05] VITALS: PULSE 97; RESP 20
[2024-09-17] MEDS: CALCIUM CHLORIDE 1GM/10ML SYR IV NR (14:18)
[2024-09-17] MEDS: FUROSEMIDE 40MG/4ML VIAL IV NR (14:18)
[2024-09-17] MEDS: SODIUM BICARBONATE 8.4% 50MEQ/50ML SYR IV NR (14:18)
[2024-09-17] MEDS: DEXTROSE 50% WATER 50ML SYRINGE IV NR (14:18)
[2024-09-17] MEDS: SODIUM POLYSTYRENE SULFONATE 15 G/60 ML BOT PO NR (14:18)
[2024-09-17 15:50] VITALS: BP 162/93; PULSE 120; RESP 17; TEMP 36.1
[2024-09-17] MEDS: ACETAMINOPHEN 325MG TABLET PO PRN (15:58)
[2024-09-17 16:00] VITALS: BP 122/64; PULSE 77; RESP 18; TEMP 36.4; O2SAT 97
[2024-09-17] MEDS ORDERED: HYDRALAZINE 20MG/ML VIAL IV PRN (17:00)
[2024-09-17] MEDS ORDERED: NALOXONE HCL 0.4MG/ML VIAL IV PRN (17:00)
[2024-09-17] MEDS: MORPHINE SULFATE 2 MG/ML INJ (NOT FOR IM USE) IV PRN (17:10)
[2024-09-17] MEDS: PIPERACILLIN/TAZO 3.375G/50ML 50 ML IV SCH (17:45)
[2024-09-17] MEDS: CLINDAMYCIN 600MG PREMIX 50 ML IV SCH (18:59)
[2024-09-17 20:00] VITALS: BP 123/70; PULSE 83; RESP 18; TEMP 36.3; O2SAT 96
[2024-09-17] MEDS: ENOXAPARIN 30MG/0.3ML SYR SUBCUT SCH (21:55)
[2024-09-17] MEDS: HYDROCODONE/ACETAMINOPHEN 5/325MG TABLET PO PRN (22:08)
[2024-09-17] MEDS ORDERED: TADA10TA PO (23:20)
[2024-09-17] MEDS ORDERED: LOSA25TA26 PO (23:20)
[2024-09-17] MEDS ORDERED: CYCL10TA21 PO (23:20)
[2024-09-17] MEDS ORDERED: LURA120T2 (23:20)
[2024-09-17] MEDS ORDERED: FLUO40CA49 PO (23:20)
[2024-09-18] VITALS: BP 119/76; PULSE 84; RESP 18; TEMP 36.4; O2SAT 98
[2024-09-18 04:00] VITALS: BP 109/49; PULSE 89; RESP 18; TEMP 36.7; O2SAT 98
[2024-09-18 06:16] LABS: BASOPHILS % 0.6 % (0.0-2.0); EOSINOPHILS % 5.4 % (0.0-5.0); HEMATOCRIT. 33.4 % (42.0-52.0); HEMOGLOBIN. 11.2 g/dL (14.0-18.0); LYMPHOCYTES % 18.5 % (20.0-50.0); MEAN CORPUSCULAR HEMOGLOBIN 27.6 pg (28.0-32.0); MEAN CORPUSCULAR HGB CONC 33.4 g/dL (31.0-37.0); MEAN CORPUSCULAR VOLUME 82.6 fL (80.0-94.0); MEAN PLATELET VOLUME 7.8 fl (7.4-10.4); MONOCYTES % 14.7 % (2.0-8.0); NEUTROPHILS % 60.8 % (40.0-76.0); PLATELET 421 x1000/uL (130-400); RED BLOOD CELL COUNT 4.04 mill/uL (4.7-6.1); RED CELL DISTRIBUTION WIDTH 17.2 % (11.6-14.6); WHITE BLOOD COUNT 7.2 x1000/uL (4.5-11.0)
[2024-09-18 06:32] LABS: CHLORIDE 100 mEq/L (98-107); POTASSIUM 3.8 mEq/L (3.5-5.1); SODIUM 137 mEq/L (136-145)
[2024-09-18 06:33] LABS: CALCIUM 9.3 mg/dL (8.7-10.4); CARBON DIOXIDE 33 mEq/L (21-32)
[2024-09-18 06:38] LABS: GLUCOSE 110 mg/dL (70-105); UREA NITROGEN BLOOD 8 mg/dL (9-23)
[2024-09-18 08:00] VITALS: BP 142/97; PULSE 91; RESP 16; TEMP 36.9; O2SAT 100
[2024-09-18] MEDS: PANTOPRAZOLE 40MG DR TABLET PO SCH (08:51)
[2024-09-18] MEDS: TAMSULOSIN HCL 0.4MG SR CAPSULE PO SCH (08:51)
[2024-09-18] MEDS: LOSARTAN 25 MG TABLET PO SCH (08:51)
[2024-09-18] MEDS: AMLODIPINE 10MG TABLET PO SCH (08:52)
[2024-09-18] MEDS: METOPROLOL SUCCINATE 50MG ER TABLET PO SCH (08:52)
[2024-09-18] MEDS: BUPROPION HCL 150MG TABLET XL 24HR PO SCH (08:52)
[2024-09-18] MEDS ORDERED: FAMOTIDINE 40MG TABLET PO SCH (09:00)
[2024-09-18 09:31] LABS: CLARITY URINE CLEAR (CLEAR); COLOR URINE YELLOW (YELLOW); GLUCOSE URINE NEGATIVE (NEGATIVE); KETONES URINE NEGATIVE (NEGATIVE); LEUKOCYTE ESTERASE URINE NEGATIVE (NEGATIVE); NITRITE URINE NEGATIVE (NEGATIVE); OCCULT BLOOD URINE NEGATIVE (NEGATIVE); PH URINE 6.5 (4.5-8.0); PROTEIN URINE NEGATIVE (NEGATIVE); SPECIFIC GRAVITY URINE 1.013 (1.005-1.030)
[2024-09-18 12:00] VITALS: BP 126/73; PULSE 85; RESP 15; TEMP 36.5; O2SAT 98
[2024-09-18] MEDS: FLUOXETINE HCL 20MG CAPSULE PO SCH (14:17)
[2024-09-18] MEDS: GABAPENTIN 300MG CAPSULE PO SCH (14:18)
[2024-09-18] MEDS: NEOMY SULF/BACITRAC ZN/POLY OINT 28GM TOP SCH (17:24)
[2024-09-18] MEDS: ZIPRASIDONE HCL 20MG CAPSULE PO SCH (18:40)
[2024-09-18 20:00] VITALS: BP 125/76; PULSE 76; RESP 17; TEMP 37; O2SAT 99
[2024-09-18] MEDS: TRAZODONE HCL 50MG TABLET PO SCH (21:16)
[2024-09-19] VITALS: BP 121/80; PULSE 79; RESP 17; TEMP 36.8; O2SAT 99
[2024-09-19 04:00] VITALS: BP 126/76; PULSE 81; RESP 18; TEMP 36.9; O2SAT 99
[2024-09-19 07:51] LABS: HEMATOCRIT. 34.3 % (42.0-52.0); MEAN CORPUSCULAR HEMOGLOBIN 26.5 pg (28.0-32.0); MEAN CORPUSCULAR HGB CONC 32.1 g/dL (31.0-37.0); MEAN CORPUSCULAR VOLUME 82.5 fL (80.0-94.0); MEAN PLATELET VOLUME 7.6 fl (7.4-10.4); PLATELET 459 x1000/uL (130-400); RED BLOOD CELL COUNT 4.16 mill/uL (4.7-6.1); RED CELL DISTRIBUTION WIDTH 17.6 % (11.6-14.6); WHITE BLOOD COUNT 7.6 x1000/uL (4.5-11.0)
[2024-09-19 07:59] LABS: CARBON DIOXIDE 30 mEq/L (21-32); CHLORIDE 100 mEq/L (98-107); POTASSIUM 3.8 mEq/L (3.5-5.1); SODIUM 136 mEq/L (136-145)
[2024-09-19 08:00] VITALS: BP 129/78; PULSE 84; RESP 18; TEMP 36.7; O2SAT 100
[2024-09-19 08:00] LABS: CALCIUM 9.1 mg/dL (8.7-10.4)
[2024-09-19 08:05] LABS: GLUCOSE 92 mg/dL (70-105); UREA NITROGEN BLOOD 9 mg/dL (9-23)
[2024-09-19] MEDS: PANTOPRAZOLE 40MG DR TABLET PO SCH (09:08)
[2024-09-19 09:17] LABS: DIFFERENTIAL COMMENT 1
[2024-09-19 12:00] VITALS: BP 122/75; PULSE 80; RESP 19; TEMP 36.5; O2SAT 100
[2024-09-19] MEDS: LACTOBACILLUS GG CAPSULE PO SCH (12:07)
[2024-09-19 15:12] LABS: PLATELET ESTIMATE SLIGHTLY INCREASED
[2024-09-19] MEDS: MORPHINE SULFATE 4 MG/ML INJ (FOR IV/IM USE) IV PRN (15:23)
[2024-09-19 16:00] VITALS: BP 122/71; PULSE 83; RESP 18; TEMP 36.1; O2SAT 97
[2024-09-19] MEDS: CLINDAMYCIN 600 MG in DEXTROSE 5% WATER 50 ML IV SCH (18:31)
[2024-09-19 20:00] VITALS: BP 136/86; PULSE 75; RESP 20; TEMP 35.8; O2SAT 97
[2024-09-19] MEDS: CEFAZOLIN 2GM/100ML 100 ML IV SCH (22:12)
[2024-09-20] VITALS: BP 122/61; PULSE 74; RESP 20; TEMP 36.1; O2SAT 97
[2024-09-20 04:00] VITALS: BP 139/90; PULSE 73; RESP 20; TEMP 35.6; O2SAT 100
[2024-09-20 08:00] VITALS: BP 132/92; PULSE 106; RESP 17; TEMP 36.2; O2SAT 97
[2024-09-20 12:00] VITALS: BP 146/80; PULSE 93; RESP 18; TEMP 36.6; O2SAT 97
[2024-09-20 16:00] VITALS: BP 124/61; PULSE 82; RESP 18; TEMP 36.5; O2SAT 96
[2024-09-20] MEDS ORDERED: CEPH500C2 MT (18:12)
[2024-09-20] MEDS ORDERED: METO-539 MT (18:12)
[2024-09-20] MEDS ORDERED: LACT1CAP56 MT (18:12)
[2024-09-20 20:00] VITALS: BP 145/88; PULSE 71; RESP 20; TEMP 36.4; O2SAT 99
[2024-09-21] VITALS: BP 128/58; PULSE 66; RESP 20; TEMP 35.9; O2SAT 100
[2024-09-21 04:00] VITALS: BP 164/94; PULSE 72; RESP 20; TEMP 36.4; O2SAT 100
[2024-09-21 04:09] VITALS: BP 128/58; PULSE 66; TEMP 96.6; O2SAT 100
[2024-09-21 08:00] VITALS: BP 141/96; PULSE 72; RESP 15; TEMP 36.2; O2SAT 100
[2024-09-21 08:14] VITALS: PULSE 66
[2024-09-21] MEDS ORDERED: CEFAZOLIN 2000MG PREMIX 50 ML IV SCH (22:00)
== END 2024-09-21 13:10 | disposition home or self-care (01) | DRG 593 ==
LOC: ER 07:42 → 6WST 11:08
PROVIDERS: ADMIT Internal Medicine; ATTEND Internal Medicine
PROC: 0H9FXZZ Drainage of Right Hand Skin, External Approach (ICD-10-PCS; principal; 2024-09-17)
DX: L98.499 Non-pressure chronic ulcer of skin of other sites with unspecified severity (principal); E87.1 Hypo-osmolality and hyponatremia; L03.113 Cellulitis of right upper limb; E87.5 Hyperkalemia; I10 Essential (primary) hypertension; S61.411A Laceration without foreign body of right hand, initial encounter; S63.104A Unspecified dislocation of right thumb, initial encounter; G47.00 Insomnia, unspecified; F20.9 Schizophrenia, unspecified; F41.9 Anxiety disorder, unspecified; F43.10 Post-traumatic stress disorder, unspecified; F17.210 Nicotine dependence, cigarettes, uncomplicated; Z79.899 Other long term (current) drug therapy; Z86.718 Personal history of other venous thrombosis and embolism; Z95.828 Presence of other vascular implants and grafts; Z98.84 Bariatric surgery status; Y08.89XA Assault by other specified means, initial encounter; Y93.89 Activity, other specified; Y92.89 Other specified places as the place of occurrence of the external cause; Y99.8 Other external cause status; B95.61 Methicillin susceptible Staphylococcus aureus infection as the cause of diseases classified elsewhere
CPT/HCPCS: 10060; 36415; 73130; 80048; 81003; 83605; 84145; 85025; 87070; 87077; 87186; 94070; 94640; 94664; 99285; J0690; J1650; J1815; J1885; J1940; J2270; J2543; J3370; J3490; J7060